=== PATIENT | male | born 1970 | race Caucasian/White ===

== ENCOUNTER 2017-09-01 14:43 | Emergency (ER) | payer OTHER ==
[2017-09-01] MEDS: DIPH,PERTUSS(ACELL),TET VAC/PF 0.5 ML DISP.SYRIN IM ONE (15:00)
--- NOTE | 2017-09-01 15:00 | ED Physician Documentation ---
General Adult - HISTORIAN Historian: patient - HPI Stated Complaint: laceration left hand index finger Chief Complaint: Laceration/Recheck/Suture Onset: minutes (20) Timing: still present Severity: mild Modifying Factors: none Context: none Quality: none Location: none Further Comments: no Last known Well Date: 09/01/17 Last Known Well Time: 14:00 Last known Well Code/Unknown Code: Unknown - ROS CONST: no problems GI/: none MS/SKIN/LYMPH: other (lac on finger ) NEURO/PSYCH: denies: headache, fainting, dizziness - PAST HX Past History: none Other History: none Surgeries/Procedures: none Allergies/Adverse Reactions: Allergies Allergy/AdvReac Type Severity Reaction Status Date / Time Penicillins Allergy Verified 09/01/17 14:52 Sulfa (Sulfonamide Allergy Verified 09/01/17 14:52 Antibiotics) Home Medications: Ambulatory Orders Medication Instructions Recorded NK [NK] 09/01/17 - SOCIAL HX Smoking History: non-smoker Alcohol Use: none Drug Use: none - FAMILY HX Family History: No - REVIEWED ASSESSMENTS Nursing Assessment Reviewed: Yes Vitals Reviewed: Yes Procedures Wound Location: upper extremity Wound Length: 1 cm Wound's Depth, Shape: linear Wound Explored: clean Irrigated w/ Saline (ccs): 3 Betadine Prep?: No (hebacleanse ) Wound Repaired With: Dermabond ED Results Lab/Radiology - Orders Orders: ED Orders Category Date Time Status Lidocaine 1% 5ml(IM or SUTURE) [Xylocaine] Med 09/01/17 14:45 Discontinued 50 mg .ROUTE .STK-MED ONE General Adult Physical Exam - PHYSICAL EXAM GENERAL APPEARANCE: no distress EENT: eye inspection normal, ENT inspection normal RESPIRATORY: no resp distress, chest non-tender, breath sounds normal CVS: reg rate & rhythm, heart sounds normal ABDOMEN: soft SKIN: other (left index finger with 1 cm long laceration - pt is requestion glue no sutures (area and reason for sutures explained) ) NEURO: oriented X3, CN's nml as tested Discharge Clincal Impression: Laceration Referrals: Primary Doctor,No [Primary Care Provider] - 2 Days Condition: Stable Disposition: 01 HOME, SELF-CARE Decision to Admit: NO Date of Decison to Admit: 09/01/17 Decision Time: 15:01
[2017-09-01 15:02] VITALS: BP 131/82
[2017-09-01] MEDS: Lidocaine 1% 5ml(IM or SUTURE)(PAIN CLINIC) ONE (15:11)
== END 2017-09-01 15:00 | disposition home or self-care (01) ==
LOC: ED 14:43
DX: S61.211A Laceration without foreign body of left index finger without damage to nail, initial encounter (principal); X58.XXXA Exposure to other specified factors, initial encounter; Y93.9 Activity, unspecified; Y99.9 Unspecified external cause status
CPT/HCPCS: 12001; 90715; 99283